=== PATIENT | female | born 1930 | race Caucasian/White ===

== ENCOUNTER → 2017-12-13 | Outpatient (CLI) | payer MEDICARE, OTHER ==
[~2017-12-13] MED LIST: ALEN70 PO; ALLO100 PO; ASPI81CH PO; ATOR40TA PO; CENTRUM SILVER1 EAC3 PO; FISH OIL 1,0001 EAC1 PO; FURO40 PO; GLIP5ER PO; Keflex500 MG PO; LEVFLO500 PO; LEVSOD50 PO; LOSA50 PO; LOSARTAN POTAS100 MG PO; METO25 PO; Metformin HCl500 M1 PO; POTCHL20ER PO; ROSADAN 0.75%1 EAC1 TOP; TORSE20 PO; WARF5 PO
[2017-12-13 17:30] LABS: Microalb/Creat Ratio UR, Rand Unable to Calculate mg/g (0.000-30.000); Microalbumin, Random Urine <5.000 mg/L (0.000-20.000)
== END | disposition home or self-care (01) ==
LOC: LAB 10:50 → LAB SHORT 10:50 → LAB FUT 12-05 15:00 → EDSTATUS 12-05 15:00
PROVIDERS: Family Medicine
DX: E11.59 Type 2 diabetes mellitus with other circulatory complications (principal); E11.22 Type 2 diabetes mellitus with diabetic chronic kidney disease; N18.3 Chronic kidney disease, stage 3 (moderate)
CPT/HCPCS: 82043; 82570

== ENCOUNTER → 2018-01-24 | Outpatient (CLI) | payer MEDICARE, OTHER | LOC: LAB 11:51 | DX: L03.116 Cellulitis of left lower limb (principal) | CPT/HCPCS: 87070; 87077; 87147; 87186; 87205 ==

== ENCOUNTER → 2018-03-07 | Outpatient (CLI) | payer MEDICARE, OTHER ==
[~2018-03-07] MED LIST changes: -ALLO100 PO; -ASPI81CH PO; -CENTRUM SILVER1 EAC3 PO; -FISH OIL 1,0001 EAC1 PO; -GLIP5ER PO; -LEVFLO500 PO; -POTCHL20ER PO; -ROSADAN 0.75%1 EAC1 TOP; -TORSE20 PO; +WARF3 PO
== END ==
LOC: LAB 11:19 → LAB SHORT 11:19
DX: L03.115 Cellulitis of right lower limb (principal)
CPT/HCPCS: 87070; 87077; 87147; 87186; 87205

== ENCOUNTER → 2018-03-21 | Outpatient (CLI) | payer MEDICARE, OTHER | LOC: LAB 10:30 → LAB SHORT 10:30 | DX: L03.115 Cellulitis of right lower limb (principal) | CPT/HCPCS: 87070; 87077; 87147; 87186; 87205 ==

== ENCOUNTER → 2018-06-11 | Outpatient (CLI) | payer MEDICARE, OTHER ==
[~2018-06-11] MED LIST changes: +ALLO300 PO; +ASPI81CH PO; +CENTRUM SILVER1 EAC3 PO; +FISH OIL 1,0001 EAC1 PO; +GLIP5ER PO; +POTCHL20ER PO
== END | disposition home or self-care (01) ==
LOC: LAB 14:50 → LAB SHORT 14:50
DX: L03.116 Cellulitis of left lower limb (principal)
CPT/HCPCS: 87070; 87077; 87147; 87186; 87205

== ENCOUNTER 2018-06-13 14:07 | Inpatient (IN) | payer MEDICARE, OTHER ==
[~2018-06-13] VITALS: Ht 170.2 cm; Wt 106.1 kg
[~2018-06-13 14:07] MED LIST changes: -ALLO300 PO; -ASPI81CH PO; -CENTRUM SILVER1 EAC3 PO; -FISH OIL 1,0001 EAC1 PO; -GLIP5ER PO; -POTCHL20ER PO; -WARF3 PO
[2018-06-13] MEDS ORDERED: POTCHL20ER PO (14:33)
[2018-06-13] MEDS ORDERED: GLIP5ER PO (14:34)
[2018-06-13 15:14] LABS: BASOPHILS ABSOLUTE AUTO 0.03 K/mm3 (0.00-0.23); BASOPHILS PERCENT AUTO 0 % (0-2); EOSINOPHILS ABSOLUTE AUTO 0.03 K/mm3 (0.00-0.68); EOSINOPHILS PERCENT AUTO 0 % (0-6); Hematocrit 30.2 % (33.0-51.0); Hemoglobin 9.9 g/dL (11.5-16.0); IMMATURE GRAN ABSOLUTE AUTO 0.07 K/mm3 (0.00-0.10); IMMATURE GRAN PERCENT AUTO 1 % (0-1); LYMPHOCYTES ABSOLUTE AUTO 0.88 K/mm3 (0.84-5.20); LYMPHOCYTES PERCENT AUTO 7 % (21-46); MONOCYTES ABSOLUTE AUTO 1.22 K/mm3 (0.16-1.47); MONOCYTES PERCENT AUTO 10 % (4-13); Mean Corpuscular HGB 30.9 pg (26.0-34.0); Mean Corpuscular HGB Conc 32.8 g/dL (31.5-36.5); Mean Corpuscular Volume 94 fL (80-100); Mean Platelet Volume 9.4 fL (9.1-12.4); NEUTROPHILS PERCENT AUTO 82 % (41-73); Platelet Count 227 K/mm3 (150-400); RDW Standard Deviation 51.4 fL (35.1-46.3); White Blood Cell Count 12.53 K/mm3 (4.00-11.30)
[2018-06-13 16:39] LABS: Alanine Aminotransfer (ALT/SGP 25 U/L (12-78); Albumin, Blood 2.7 g/dL (3.4-5.0); Albumin/Globulin Ratio 0.7 (0.8-1.8); Alk Phos 95 U/L (50-136); Anion Gap 9 mmol/L (6-16); Aspartate Aminotrans (AST/SGOT 22 U/L (12-37); Bilirubin, Total 0.5 mg/dL (0.1-1.0); Blood Urea Nitrogen 42 mg/dL (8-24); Bun/Creatinine Ratio 24.7 (12.0-20.0); CO2, Blood 23 mmol/L (21-32); Chloride, Blood 106 mmol/L (98-108); Globulin, Blood 3.8 g/dL (2.2-4.0); Glomerular Filtration Rate 30 (60-); Glucose, Blood 119 mg/dL (70-99); Magnesium, Blood 2.1 mg/dL (1.6-2.4); Potassium, Blood 4.4 mmol/L (3.5-5.5); Sodium, Blood 138 mmol/L (136-145); Total Protein, Blood 6.5 g/dL (6.4-8.2); Troponin I <0.015 ng/mL (0.000-0.040)
[2018-06-13 17:40] LABS: Free Thyroxine 1.14 ng/dL (0.70-1.60)
[2018-06-13 18:22] LABS: Source, Urine Catheter
[2018-06-13 18:24] LABS: Appearance, Urine Clear (Clear); Bilirubin, Urine Neg (Neg); Blood, Urine 2+ (Neg); Color, Urine Yellow (P-Yellow); Glucose Qualitative, Urine Neg (Neg); Ketones, Urine Neg (Neg); Leukocyte Esterase, Urine 3+ (Neg); Nitrite, Urine Pos (Neg); Protein, Urine Neg (Neg); Urobilinogen, Urine NORM (Normal)
[2018-06-13 18:37] LABS: Bacteria Many /hpf; Squamous Epithelial Cells Few /hpf (Few); White Blood Cells, Urine 25-50 /hpf (0-5)
[2018-06-13 18:51] LABS: Percent Saturation 10.9 % (15.0-50.0)
[2018-06-14] MEDS ORDERED: ASPI81CH PO (03:15)
[2018-06-14] MEDS ORDERED: ALLO100 PO (03:15)
[2018-06-14] MEDS ORDERED: CENTRUM SILVER1 EAC3 PO (03:16)
[2018-06-14] MEDS ORDERED: FISH OIL 1,0001 EAC1 PO (03:17)
[2018-06-14 05:24] LABS: BASOPHILS ABSOLUTE AUTO 0.05 K/mm3 (0.00-0.23); BASOPHILS PERCENT AUTO 1 % (0-2); EOSINOPHILS ABSOLUTE AUTO 0.12 K/mm3 (0.00-0.68); EOSINOPHILS PERCENT AUTO 1 % (0-6); Hematocrit 34.4 % (33.0-51.0); Hemoglobin 10.7 g/dL (11.5-16.0); IMMATURE GRAN ABSOLUTE AUTO 0.06 K/mm3 (0.00-0.10); IMMATURE GRAN PERCENT AUTO 1 % (0-1); LYMPHOCYTES ABSOLUTE AUTO 1.29 K/mm3 (0.84-5.20); LYMPHOCYTES PERCENT AUTO 12 % (21-46); MONOCYTES ABSOLUTE AUTO 1.47 K/mm3 (0.16-1.47); MONOCYTES PERCENT AUTO 14 % (4-13); Mean Corpuscular HGB 30.1 pg (26.0-34.0); Mean Corpuscular HGB Conc 31.1 g/dL (31.5-36.5); Mean Platelet Volume 8.9 fL (9.1-12.4); NEUTROPHILS ABSOLUTE AUTO 7.61 K/mm3 (1.96-9.15); NEUTROPHILS PERCENT AUTO 72 % (41-73); Platelet Count 193 K/mm3 (150-400); RDW Standard Deviation 53.8 fL (35.1-46.3); Red Blood Cell Count 3.55 M/mm3 (3.80-5.20)
[2018-06-14 05:25] LABS: Mean Corpuscular Volume 97 fL (80-100)
[2018-06-14 06:12] LABS: International Normalized Ratio 2.76; Prothrombin Time Results 26.8 Sec (9.7-11.5)
[2018-06-14 06:25] LABS: Anion Gap 8 mmol/L (6-16); Blood Urea Nitrogen 34 mg/dL (8-24); Bun/Creatinine Ratio 22.1 (12.0-20.0); CO2, Blood 24 mmol/L (21-32); Calcium, Blood 9.8 mg/dL (8.5-10.1); Chloride, Blood 112 mmol/L (98-108); Creatinine, Blood 1.54 mg/dL (0.40-1.00); Glomerular Filtration Rate 34 (60-); Glucose, Blood 90 mg/dL (70-99); Sodium, Blood 144 mmol/L (136-145); Vancomycin, Random 12.8 ug/mL
[2018-06-14 06:27] LABS: Triiodothyronine, Free 1.61 pg/mL (2.18-3.98)
[2018-06-15 05:30] LABS: Hematocrit 35.6 % (33.0-51.0); Hemoglobin 11.3 g/dL (11.5-16.0)
[2018-06-15 05:45] LABS: Anion Gap 8 mmol/L (6-16); Blood Urea Nitrogen 39 mg/dL (8-24); Bun/Creatinine Ratio 24.7 (12.0-20.0); CO2, Blood 24 mmol/L (21-32); Calcium, Blood 9.6 mg/dL (8.5-10.1); Chloride, Blood 110 mmol/L (98-108); Creatinine, Blood 1.58 mg/dL (0.40-1.00); Glomerular Filtration Rate 33 (60-); Glucose, Blood 117 mg/dL (70-99); Potassium, Blood 4.4 mmol/L (3.5-5.5); Sodium, Blood 142 mmol/L (136-145); Vancomycin, Random 14.1 ug/mL
[2018-06-15 05:53] LABS: International Normalized Ratio 3.19; Prothrombin Time Results 30.8 Sec (9.7-11.5)
[2018-06-17 08:08] LABS: BASOPHILS ABSOLUTE AUTO 0.04 K/mm3 (0.00-0.23); BASOPHILS PERCENT AUTO 0 % (0-2); EOSINOPHILS ABSOLUTE AUTO 0.33 K/mm3 (0.00-0.68); EOSINOPHILS PERCENT AUTO 3 % (0-6); Hematocrit 36.1 % (33.0-51.0); Hemoglobin 11.4 g/dL (11.5-16.0); IMMATURE GRAN ABSOLUTE AUTO 0.08 K/mm3 (0.00-0.10); IMMATURE GRAN PERCENT AUTO 1 % (0-1); LYMPHOCYTES ABSOLUTE AUTO 1.27 K/mm3 (0.84-5.20); LYMPHOCYTES PERCENT AUTO 13 % (21-46); MONOCYTES ABSOLUTE AUTO 1.12 K/mm3 (0.16-1.47); MONOCYTES PERCENT AUTO 11 % (4-13); Mean Corpuscular HGB 29.9 pg (26.0-34.0); Mean Corpuscular HGB Conc 31.6 g/dL (31.5-36.5); Mean Corpuscular Volume 95 fL (80-100); NEUTROPHILS ABSOLUTE AUTO 7.26 K/mm3 (1.96-9.15); NEUTROPHILS PERCENT AUTO 72 % (41-73); Platelet Count 284 K/mm3 (150-400); RDW Coefficient Variation 15.3 % (11.7-14.2); RDW Standard Deviation 52.3 fL (35.1-46.3); Red Blood Cell Count 3.81 M/mm3 (3.80-5.20)
[2018-06-17 08:20] LABS: International Normalized Ratio 2.77; Prothrombin Time Results 26.9 Sec (9.7-11.5)
[2018-06-17 08:39] LABS: Anion Gap 10 mmol/L (6-16); Blood Urea Nitrogen 38 mg/dL (8-24); Bun/Creatinine Ratio 26.2 (12.0-20.0); CO2, Blood 22 mmol/L (21-32); Calcium, Blood 9.9 mg/dL (8.5-10.1); Chloride, Blood 109 mmol/L (98-108); Creatinine, Blood 1.45 mg/dL (0.40-1.00); Glomerular Filtration Rate 36 (60-); Glucose, Blood 143 mg/dL (70-99); Potassium, Blood 4.4 mmol/L (3.5-5.5); Sodium, Blood 141 mmol/L (136-145); Vancomycin, Trough 15.9 ug/mL (5.0-10.0)
[2018-06-18 05:07] LABS: International Normalized Ratio 2.96; Prothrombin Time Results 28.7 Sec (9.7-11.5)
[2018-06-18] MEDS ORDERED: TORSE20 PO (09:46)
[2018-06-18] MEDS ORDERED: ROSADAN 0.75%1 EAC1 TOP (09:49)
[2018-06-18] MEDS ORDERED: LEVFLO500 PO (11:48)
== END 2018-06-18 15:55 | disposition home or self-care (01) | DRG 638 ==
LOC: ER 14:07 → MEDS 17:18 → ENPENDDIS 06-18 10:44 → MEDS 06-18 15:55
PROVIDERS: Emergency Medicine; Hospitalist; Internal Medicine; Pharmacist
DX: E11.622 Type 2 diabetes mellitus with other skin ulcer (principal); I83.222 Varicose veins of left lower extremity with both ulcer of calf and inflammation; L97.219 Non-pressure chronic ulcer of right calf with unspecified severity; R65.10 Systemic inflammatory response syndrome (SIRS) of non-infectious origin without acute organ dysfunction; L03.115 Cellulitis of right lower limb; L03.116 Cellulitis of left lower limb; N39.0 Urinary tract infection, site not specified; L97.229 Non-pressure chronic ulcer of left calf with unspecified severity; I83.212 Varicose veins of right lower extremity with both ulcer of calf and inflammation; A49.02 Methicillin resistant Staphylococcus aureus infection, unspecified site; Z86.73 Personal history of transient ischemic attack (TIA), and cerebral infarction without residual deficits; I48.91 Unspecified atrial fibrillation; E78.5 Hyperlipidemia, unspecified; E03.9 Hypothyroidism, unspecified; I65.23 Occlusion and stenosis of bilateral carotid arteries; B96.5 Pseudomonas (aeruginosa) (mallei) (pseudomallei) as the cause of diseases classified elsewhere; M81.0 Age-related osteoporosis without current pathological fracture; Z79.84 Long term (current) use of oral hypoglycemic drugs; Z66 Do not resuscitate; Z79.01 Long term (current) use of anticoagulants; Z79.82 Long term (current) use of aspirin; I12.9 Hypertensive chronic kidney disease with stage 1 through stage 4 chronic kidney disease, or unspecified chronic kidney disease; N18.4 Chronic kidney disease, stage 4 (severe); D64.9 Anemia, unspecified; W18.30XA Fall on same level, unspecified, initial encounter; Y93.9 Activity, unspecified; Y92.9 Unspecified place or not applicable
CPT/HCPCS: 36415; 71045; 80048; 80053; 80202; 81001; 82728; 82947; 83540; 83550; 83605; 83735; 84439; 84443; 84481; 84484; 85014; 85018; 85025; 85610; 87040; 87077; 87086; 87186; 93005; 93010; 93922; 93970; 94762; 96365; 96366; 96367; 97110; 97116; 97162; 97166; 97530; 97535; 99285-25; G8978; G8979; G8987; G8988; J2543; J3370; J7030; J7050